=== PATIENT | male | born 1970 | race African-American/Black ===

== ENCOUNTER 2020-06-29 22:28 | Emergency (ER) | payer MEDICAID ==
[~2020-06-29] VITALS: Ht 182.9 cm; Wt 96.8 kg
[~2020-06-29 22:28] MED LIST: AMOX-291 PO
[2020-06-29 22:30] VITALS: BP 143/67
[2020-06-29] MEDS ORDERED: CEFTRIAXONE 250 MG ONE (22:49)
[2020-06-29] MEDS ORDERED: AZITHROMYCIN 500 MG TABLET ONE (22:49)
[2020-06-29] MEDS ORDERED: LIDOCAINE-MPF 1%, 5ML ONE (22:49)
[2020-06-29] MEDS ORDERED: CEFTRIAXONE 250 MG IM ONE (23:00)
[2020-06-29] MEDS ORDERED: AZITHROMYCIN 500 MG TABLET PO ONE (23:00)
== END 2020-06-29 23:13 | disposition home or self-care (01) ==
LOC: ED 22:58
DX: R30.0 Dysuria (principal); Z20.2 Contact with and (suspected) exposure to infections with a predominantly sexual mode of transmission; R36.9 Urethral discharge, unspecified; F17.290 Nicotine dependence, other tobacco product, uncomplicated; I10 Essential (primary) hypertension
CPT/HCPCS: 96372; 99283; 99406; J0696